=== PATIENT | male | born 1975 | race Caucasian/White ===

== ENCOUNTER 2018-10-19 07:13 | Inpatient (IN) | payer SELFPAY ==
[~2018-10-19] VITALS: Ht 167.6 cm; Wt 87.0 kg
[2018-10-19] MEDS ORDERED: ONDANSETRON 4 MG INJ ONE (07:43)
[2018-10-19] MEDS ORDERED: morphine 4 MG/ML VIAL ONE (07:44)
[2018-10-19] MEDS ORDERED: morphine 4 MG/ML VIAL IV STA ×2 (07:48→09:50)
[2018-10-19] MEDS ORDERED: ONDANSETRON 4 MG INJ IV STA ×2 (07:48→17:35)
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
[2018-10-19] MEDS ORDERED: SOD CHLORIDE 0.9% 100 ML ONE (08:07)
[2018-10-19] MEDS ORDERED: IOHEXOL 300MG/ML 150 ML BTL ONE (08:07)
[2018-10-19] MEDS ORDERED: ACET-141 PO (08:46)
[2018-10-19] MEDS ORDERED: IBUP-1542 PO (08:46)
[2018-10-19] MEDS ORDERED: [UNRECOGNIZED DRUG - CODE] PO (08:46)
[2018-10-19] MEDS ORDERED: SOD CHLORIDE 0.9% 1,000 ML IV ONE (10:00)
[2018-10-19] MEDS ORDERED: FENTAnyl 50 MCG/ML VIAL ONE (10:46)
[2018-10-19] MEDS ORDERED: FENTAnyl 50 MCG/ML VIAL IV ONE (11:00)
[2018-10-19] MEDS ORDERED: ACETAMINOPHEN 325 MG TAB PO PRN (12:00)
[2018-10-19] MEDS ORDERED: HYDROmorphONE 0.5 MG/0.5 ML SYG IV STA (13:39)
[2018-10-19] MEDS ORDERED: HYDROmorphONE 1 MG/ML SYG ONE (13:43)
[2018-10-19] MEDS: ONDANSETRON 4 MG INJ IV PRN (14:11)
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
[2018-10-19] MEDS ORDERED: ONDANSETRON 4 MG INJ IV PRN (15:00)
[2018-10-19] MEDS ORDERED: NACL 0.9% 3 ML SYG IV SCH (15:00)
[2018-10-19] MEDS: HYDROmorphONE 2 MG/ML SYG IV PRN ×3 (15:57→22:01)
[2018-10-19] MEDS ORDERED: HYDROmorphONE 1 MG/ML SYG IV STA (17:35)
[2018-10-19 18:06] VITALS: BP 148/98; PULSE 89; RESP 18
[2018-10-19] MEDS: PANTOPRAZOLE 40 MG INJ IV SCH (18:45)
[2018-10-19] MEDS: SOD CHLORIDE 0.9% 1,000 ML IV SCH (18:45)
[2018-10-19 19:54] VITALS: BP 143/80; PULSE 66; RESP 20
[2018-10-19 21:30] VITALS: Ht 167.6 cm; Wt 87.0 kg
[2018-10-20] MEDS: SOD CHLORIDE 0.9% 1,000 ML IV SCH ×5 (01:24→23:26)
[2018-10-20 02:18] VITALS: BP 148/88; PULSE 88; RESP 18
[2018-10-20] MEDS: PANTOPRAZOLE 40 MG INJ IV SCH ×2 (05:30→22:03)
[2018-10-20] MEDS: HYDROmorphONE 2 MG/ML SYG IV PRN ×4 (05:33→20:32)
[2018-10-20 07:08] VITALS: BP 148/93; PULSE 84; RESP 18
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
[2018-10-20] MEDS: ONDANSETRON 4 MG INJ IV PRN (11:28)
[2018-10-20 14:05] VITALS: BP 146/80; PULSE 80; RESP 18
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
[2018-10-20 19:05] VITALS: BP 155/101; PULSE 76; RESP 18
[2018-10-20] MEDS: GEMFIBROZIL 600 MG TAB PO SCH (20:32)
[2018-10-20] MEDS: FISH OIL 1,000 MG CAP PO SCH (20:32)
[2018-10-21 02:00] VITALS: BP 158/101; PULSE 74; RESP 18
[2018-10-21] MEDS: HYDROmorphONE 2 MG/ML SYG IV PRN ×4 (02:26→20:31)
[2018-10-21] MEDS: PANTOPRAZOLE 40 MG INJ IV SCH ×2 (06:13→17:25)
[2018-10-21] MEDS: SOD CHLORIDE 0.9% 1,000 ML IV SCH ×3 (06:14→20:31)
[2018-10-21 07:42] VITALS: BP 138/88; PULSE 78; RESP 18
[2018-10-21] MEDS: FISH OIL 1,000 MG CAP PO SCH ×2 (08:20→20:27)
[2018-10-21] MEDS: GEMFIBROZIL 600 MG TAB PO SCH ×2 (08:20→20:27)
[2018-10-21] MEDS: ACETAMINOPHEN 325 MG TAB PO PRN ×2 (08:25→17:25)
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
[2018-10-21] MEDS ORDERED: THIAMINE 200 MG INJ IM ONE ×2 (13:00)
[2018-10-21 14:13] VITALS: BP 145/84; PULSE 76; RESP 18
--- NOTE | 2018-10-21 17:44 | PN ---
Date/Time of Note Date/Time of Note DATE: 10/21/18 TIME: 17:37 Assessment/Plan VTE Prophylaxis Risk score (from Ns)>0 risk: 1 SCD applied (from Ns): Yes Pharmacological prophylaxis: NA/contraindicated Pharm contraindication: liver dx Lines/Catheters IV [facility] Type [facility]from [facility] Peripheral IV Assessment/Plan Assessment/Plan Assessment: Acute pancreatitis -likely alcohol related, improving Elevated lipase - improving Duodenitis on CT Fatty liver Transaminitis Hyperbilirubinemia Alcohol abuse Plan: Continue IV fluids Can advance to full liquid diet Monitor lipase, continues to improve Monitor LFTs and bilirubin, improving overall Patient seen in collaboration with Dr. Dowd Subjective: Patient is doing well. Denies nausea or vomiting, denies abdominal pain. He is tolerating clear liquids. Liver function tests are improving as is lipase. Could advanced diet tomorrow. PHYSICAL EXAMINATION: GENERAL: Well developed, well nourished, alert & oriented x 3, in no acute dist ress SKIN: No lesions, jaundice, no stigmata chronic liver disease, no evidence of bleeding diathesis LYMPHATIC: No palpable lymphadenopathy. HEAD: Normocephalic, atraumatic, no tenderness. EYES: Pupils equal reactive to light and accommodation, full extraocular movements, sclera clear, non-icteric, no discharge. EARS/NOSE AND THROAT: Ears normal, nose normal, oropharynx normal, oral membranes well hydrated without lesions. NECK: Supple, no masses, thyroid normal, JVP within normal limits, carotids normal without bruits. CHEST: Inspection within normal limits. CARDIOVASCULAR: Heart: Regular rate and rhythm, no murmurs, gallops or rubs. Peripheral pulses present within normal limits, no cyanosis, clubbing or edemas. No pulsatile abdominal mass RESPIRATORY: Lungs clear to auscultation and percussion, no wheezing, no rubs GASTROINTESTINAL AND LIVER: Abdomen: Soft, upper abdominal tenderness, non- distended, no hernias, no masses, no organomegaly, no ascites, no guarding, no rebound tenderness, normoactive bowel sounds. Rectal: Deferred. GENITOURINARY: Male genitalia within normal limits. EXTREMITIES: No cyanosis, clubbing or edema. Result Diagram: 10/21/187 10/21/187 Results 24hrs Laboratory Tests Test 10/21/18 04:27 White Blood Count 6.3 Red Blood Count 4.52 L Hemoglobin 13.3 L Hematocrit 39.8 L Mean Corpuscular Volume 88.1 Mean Corpuscular Hemoglobin 29.4 Mean Corpuscular Hemoglobin Concent 33.4 Red Cell Distribution Width 12.2 Platelet Count 180 Mean Platelet Volume 10.1 Immature Granulocytes % 0.600 H Neutrophils % 58.7 Lymphocytes % 26.9 Monocytes % 7.5 Eosinophils % 6.0 Basophils % 0.3 Nucleated Red Blood Cells % 0.0 Immature Granulocytes # 0.040 H Neutrophils # 3.7 Lymphocytes # 1.7 Monocytes # 0.5 Eosinophils # 0.4 Basophils # 0.0 Nucleated Red Blood Cells # 0.0 Sodium Level 138 Potassium Level 4.0 Chloride Level 106 Carbon Dioxide Level 21 Anion Gap 11 Blood Urea Nitrogen 6 L Creatinine 0.63 Est Glomerular Filtrat Rate mL/min > 60 Glucose Level 89 Calcium Level 8.8 Total Bilirubin 1.1 Direct Bilirubin 0.00 Indirect Bilirubin 1.1 Aspartate Amino Transf (AST/SGOT) 99 #H Alanine Aminotransferase (ALT/SGPT) 102 H Alkaline Phosphatase 192 H Total Protein 7.4 Albumin 3.9 Globulin 3.50 H Albumin/Globulin Ratio 1.11 Lipase 670 H CC: SHELBY DOWD MD ; Exam/Review of Systems Exam Vitals Vital Signs Date Temp Pulse Resp B/P (MAP) Pulse Ox O2 O2 Flow FiO2 Time Delivery Rate 10/21/18 97.5 76 18 145/84 90 14:13 (104) 10/19/18 Room Air 17:02 Intake and Output 10/20/18 10/20/18 10/21/18 1515:00 23:00 07:00 IntakeIntake Total 750 ml 300 ml 1700 ml BalanceBalance 750 ml 300 ml 1700 ml Results Results 24hrs Laboratory Tests Test 10/21/18 04:27 White Blood Count 6.3 Red Blood Count 4.52 L Hemoglobin 13.3 L Hematocrit 39.8 L Mean Corpuscular Volume 88.1 Mean Corpuscular Hemoglobin 29.4 Mean Corpuscular Hemoglobin Concent 33.4 Red Cell Distribution Width 12.2 Platelet Count 180 Mean Platelet Volume 10.1 Immature Granulocytes % 0.600 H Neutrophils % 58.7 Lymphocytes % 26.9 Monocytes % 7.5 Eosinophils % 6.0 Basophils % 0.3 Nucleated Red Blood Cells % 0.0 Immature Granulocytes # 0.040 H Neutrophils # 3.7 Lymphocytes # 1.7 Monocytes # 0.5 Eosinophils # 0.4 Basophils # 0.0 Nucleated Red Blood Cells # 0.0 Sodium Level 138 Potassium Level 4.0 Chloride Level 106 Carbon Dioxide Level 21 Anion Gap 11 Blood Urea Nitrogen 6 L Creatinine 0.63 Est Glomerular Filtrat Rate mL/min > 60 Glucose Level 89 Calcium Level 8.8 Total Bilirubin 1.1 Direct Bilirubin 0.00 Indirect Bilirubin 1.1 Aspartate Amino Transf (AST/SGOT) 99 #H Alanine Aminotransferase (ALT/SGPT) 102 H Alkaline Phosphatase 192 H Total Protein 7.4 Albumin 3.9 Globulin 3.50 H Albumin/Globulin Ratio 1.11 Lipase 670 H Medications Medication Current Medications Sodium Chloride 1,000 ml @ 150 mls/hr Q6H40M IV Last administered on 10/21/18 13:00; Admin Dose 150 MLS/HR; Start 10/19/18 at 14:52 IV Flush (NS 3 ml) 3 ml PER PROTOCOL IV ; Start 10/19/18 at 15:00 Ondansetron HCl (Zofran Inj) 4 mg Q6H PRN IV NAUSEA/VOMITING; Start 10/19/18 at 15:00 Acetaminophen (Tylenol Tab) 650 mg Q6H PRN PO .PAIN 1-3 OR TEMP Last administered on 10/21/18 17:25; Admin Dose 650 MG; Start 10/19/18 at 15:00 Hydromorphone HCl (Dilaudid) 2 mg Q4H PRN IV .SEVERE PAIN 7-10 Last administered on 10/21/18 11:13; Admin Dose 2 MG; Start 10/19/18 at 15:00 Pantoprazole (Protonix Iv) 40 mg BID@0600,1800 IV Last administered on 10/21/18 17:25; Admin Dose 40 MG; Start 10/19/18 at 18:00 Gemfibrozil (Lopid) 600 mg BID PO Last administered on 10/21/18 08:20; Admin Dose 600 MG; Start 10/20/18 at 21:00 Fish Oil (Fish Oil) 2,000 mg BID PO Last administered on 10/21/18 08:20; Admin Dose 2,000 MG; Start 10/20/18 at 21:00 Thiamine HCl (Vitamin B1) 100 mg DAILY PO ; Start 10/22/18 at 09:00 ZAC MARIE NP October 21, 2018 17:44
[2018-10-21 20:04] VITALS: BP 142/92; PULSE 77; RESP 20
[2018-10-22 02:23] VITALS: BP 140/88; PULSE 74; RESP 17
[2018-10-22] MEDS: SOD CHLORIDE 0.9% 1,000 ML IV SCH ×3 (03:06→23:22)
[2018-10-22] MEDS: PANTOPRAZOLE 40 MG INJ IV SCH ×2 (05:56→17:59)
[2018-10-22 07:06] VITALS: BP 153/96; PULSE 73; RESP 16
[2018-10-22] MEDS: FISH OIL 1,000 MG CAP PO SCH ×2 (08:41→23:22)
[2018-10-22] MEDS: GEMFIBROZIL 600 MG TAB PO SCH ×2 (08:42→23:22)
[2018-10-22] MEDS: THIAMINE 100 MG TAB PO SCH (08:42)
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
[2018-10-22 14:44] VITALS: BP 148/85; PULSE 69; RESP 16
--- NOTE | 2018-10-22 16:20 | PN ---
Date/Time of Note Date/Time of Note DATE: 10/22/18 TIME: 16:13 Assessment/Plan VTE Prophylaxis Risk score (from [facility])>0 risk: 2 SCD applied (from [facility]): Yes Pharmacological prophylaxis: NA/contraindicated Pharm contraindication: liver dx Lines/Catheters IV Catheter Type (from [facility]): Peripheral IV Assessment/Plan Assessment/Plan Assessment: Acute pancreatitis -likely alcohol related, improving Elevated lipase - increased today Duodenitis on CT Fatty liver Transaminitis - improving Hyperbilirubinemia Alcohol abuse Plan: Continue IV fluids NPO for bowel rest given increase in lipase Monitor lipase, slightly increased today Monitor LFTs and bilirubin, improving overall Continue supportive treatment for alcohol withdrawal Patient seen in collaboration with Dr. Dowd Subjective: Patient is doing well. Denies nausea or vomiting, denies abdominal pain. He is tolerating full liquid diet though lipase is higher today. Liver function tests are improving. Would encourage more bowel rest until pancreatitis resolves. PHYSICAL EXAMINATION: GENERAL: Well developed, well nourished, alert & oriented x 3, in no acute distress SKIN: No lesions, jaundice, no stigmata chronic liver disease, no evidence of bleeding diathesis LYMPHATIC: No palpable lymphadenopathy. HEAD: Normocephalic, atraumatic, no tenderness. EYES: Pupils equal reactive to light and accommodation, full extraocular movements, sclera clear, non-icteric, no discharge. EARS/NOSE AND THROAT: Ears normal, nose normal, oropharynx normal, oral membranes well hydrated without lesions. NECK: Supple, no masses, thyroid normal, JVP within normal limits, carotids normal without bruits. CHEST: Inspection within normal limits. CARDIOVASCULAR: Heart: Regular rate and rhythm, no murmurs, gallops or rubs. Peripheral pulses present within normal limits, no cyanosis, clubbing or edemas. No pulsatile abdominal mass RESPIRATORY: Lungs clear to auscultation and percussion, no wheezing, no rubs GASTROINTESTINAL AND LIVER: Abdomen: Soft, upper abdominal tenderness, non- distended, no hernias, no masses, no organomegaly, no ascites, no guarding, no rebound tenderness, normoactive bowel sounds. Rectal: Deferred. GENITOURINARY: Male genitalia within normal limits. EXTREMITIES: No cyanosis, clubbing or edema. Result Diagram: 10/21/18 0427 10/22/18 0444 Results 24hrs Laboratory Tests Test 10/22/18 04:44 Sodium Level 139 Potassium Level 4.0 Chloride Level 109 Carbon Dioxide Level 22 Anion Gap 8 Blood Urea Nitrogen 3 L Creatinine 0.59 L Est Glomerular Filtrat Rate mL/min > 60 Glucose Level 95 Calcium Level 9.5 Total Bilirubin 0.7 Direct Bilirubin 0.00 Indirect Bilirubin 0.7 Aspartate Amino Transf (AST/SGOT) 72 H Alanine Aminotransferase (ALT/SGPT) 88 H Alkaline Phosphatase 154 H Total Protein 6.5 Albumin 3.6 Globulin 2.90 Albumin/Globulin Ratio 1.24 Triglycerides Level 234 H Cholesterol Level 195 LDL Cholesterol, Calculated 110 HDL Cholesterol 38 Cholesterol/HDL Ratio 5.1 Lipase 1148 H CC: SHELBY DOWD MD ; Exam/Review of Systems Exam Vitals Vital Signs Date Temp Pulse Resp B/P (MAP) Pulse Ox O2 O2 Flow FiO2 Time Delivery Rate 10/22/18 98.5 69 16 148/85 96 Room Air 14:44 (106) Intake and Output 10/21/18 10/21/18 10/22/18 1515:00 23:00 07:00 IntakeIntake Total 1000 ml 1360 ml 1540 ml BalanceBalance 1000 ml 1360 ml 1540 ml Results Results 24hrs Laboratory Tests Test 10/22/18 04:44 Sodium Level 139 Potassium Level 4.0 Chloride Level 109 Carbon Dioxide Level 22 Anion Gap 8 Blood Urea Nitrogen 3 L Creatinine 0.59 L Est Glomerular Filtrat Rate mL/min > 60 Glucose Level 95 Calcium Level 9.5 Total Bilirubin 0.7 Direct Bilirubin 0.00 Indirect Bilirubin 0.7 Aspartate Amino Transf (AST/SGOT) 72 H Alanine Aminotransferase (ALT/SGPT) 88 H Alkaline Phosphatase 154 H Total Protein 6.5 Albumin 3.6 Globulin 2.90 Albumin/Globulin Ratio 1.24 Triglycerides Level 234 H Cholesterol Level 195 LDL Cholesterol, Calculated 110 HDL Cholesterol 38 Cholesterol/HDL Ratio 5.1 Lipase 1148 H Medications Medication Current Medications Sodium Chloride 1,000 ml @ 75 mls/hr [id number] IV Last administered on 10/22/18at 09:55; Admin Dose 150 MLS/HR; Start 10/19/18 at 14:52 IV Flush (NS 3 ml) 3 ml PER PROTOCOL IV ; Start 10/19/18 at 15:00 Ondansetron HCl (Zofran Inj) 4 mg Q6H PRN IV NAUSEA/VOMITING; Start 10/19/18 at 15:00 Acetaminophen (Tylenol Tab) 650 mg Q6H PRN PO .PAIN 1-3 OR TEMP Last administered on 10/21/18 17:25; Admin Dose 650 MG; Start 10/19/18 at 15:00 Hydromorphone HCl (Dilaudid) 2 mg Q4H PRN IV .SEVERE PAIN 7-10 Last adm inistered on 10/21/18 20:31; Admin Dose 2 MG; Start 10/19/18 at 15:00 Pantoprazole (Protonix Iv) 40 mg BID@0600,1800 IV Last administered on 10/22/18 05:56; Admin Dose 40 MG; Start 10/19/18 at 18:00 Gemfibrozil (Lopid) 600 mg BID PO Last administered on 10/22/18 08:42; Admin Dose 600 MG; Start 10/20/18 at 21:00 Fish Oil (Fish Oil) 2,000 mg BID PO Last administered on 10/22/18 08:41; Admin Dose 2,000 MG; Start 10/20/18 at 21:00 Thiamine HCl (Vitamin B1) 100 mg DAILY PO Last administered on 10/22/18 08:42; Admin Dose 100 MG; Start 10/22/18 at 09:00 ZAC MARIE NP October 22, 2018 16:20
[2018-10-22] MEDS: ACETAMINOPHEN 325 MG TAB PO PRN (18:01)
[2018-10-22 20:00] VITALS: BP 150/93; PULSE 73; RESP 18
[2018-10-23 02:00] VITALS: BP 159/91; PULSE 65; RESP 18
[2018-10-23] MEDS ORDERED: ZOLPIDEM 5 MG TAB PO ONE (02:30)
[2018-10-23 07:08] VITALS: BP 131/70; PULSE 70; RESP 18
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
[2018-10-23] MEDS ORDERED: SOD CHLORIDE 0.9% 500 ML IV ONE (10:30)
[2018-10-23] MEDS: THIAMINE 100 MG TAB PO SCH (11:02)
[2018-10-23] MEDS: FISH OIL 1,000 MG CAP PO SCH ×2 (11:02→21:53)
[2018-10-23] MEDS: PANTOPRAZOLE 40 MG INJ IV SCH ×2 (11:02→17:53)
[2018-10-23] MEDS: SOD CHLORIDE 0.9% 1,000 ML IV SCH ×2 (12:12→23:29)
[2018-10-23 13:31] VITALS: BP 147/95; PULSE 63; RESP 18
--- NOTE | 2018-10-23 15:49 | PN ---
Date/Time of Note Date/Time of Note DATE: 10/23/18 TIME: 15:48 Assessment/Plan VTE Prophylaxis Risk score (from Nsg)>0 risk: 1 SCD applied (from Nsg): Yes Pharmacological prophylaxis: other (scds) Lines/Catheters IV Catheter Type (from Nrs): Peripheral IV Assessment/Plan Hospital Course Assessment/Plan Assessment: Acute pancreatitis Elevated lipase - Duodenitis on CT- continue PPI -may be r/t pancreatitis Fatty liver Transaminitis - trending down Hyperbilirubinemia- resolved Alcohol abuse Plan: PPI NPO for bowel rest given increase in lipase Monitor lipase, slightly increased today Monitor LFTs and bilirubin, improving overall Continue supportive treatment for alcohol withdrawal Patient seen in collaboration with Dr. Dowd Subjective: No c/o abd pain, nausea or vomiting. Lipase elevated Will reassess in am- if lipase down without pain will advance diet PHYSICAL EXAMINATION: GENERAL: Well developed, well nourished, alert & oriented x 3, in no acute distress SKIN: No lesions, jaundice, no stigmata chronic liver disease, no evidence of bleeding diathesis LYMPHATIC: No palpable lymphadenopathy. HEAD: Normocephalic, atraumatic, no tenderness. EYES: Pupils equal reactive to light and accommodation, full extraocular movements, sclera clear, non-icteric, no discharge. EARS/NOSE AND THROAT: Ears normal, nose normal, oropharynx normal, oral membranes well hydrated without lesions. NECK: Supple, no masses, thyroid normal, JVP within normal limits, carotids normal without bruits. CHEST: Inspection within normal limits. CARDIOVASCULAR: Heart: Regular rate and rhythm, no murmurs, gallops or rubs. Peripheral pulses present within normal limits, no cyanosis, clubbing or edemas. No pulsatile abdominal mass RESPIRATORY: Lungs clear to auscultation and percussion, no wheezing, no rubs GASTROINTESTINAL AND LIVER: Abdomen: Soft, upper abdominal tenderness, non- distended, no hernias, no masses, no organomegaly, no ascites, no guarding, no rebound tenderness, normoactive bowel sounds. Rectal: Deferred. GENITOURINARY: Male genitalia within normal limits. EXTREMITIES: No cyanosis, clubbing or edema. Result Diagram: 10/21/18 0427 10/23/18 1270 Results 24hrs Laboratory Tests Test 10/23/18 04:40 Sodium Level 140 Potassium Level 3.9 Chloride Level 108 Carbon Dioxide Level 23 Anion Gap 9 Blood Urea Nitrogen 5 L Creatinine 0.69 Est Glomerular Filtrat Rate mL/min > 60 Glucose Level 120 Calcium Level 10.0 Total Bilirubin 0.7 Direct Bilirubin 0.00 Indirect Bilirubin 0.7 Aspartate Amino Transf (AST/SGOT) 74 H Alanine Aminotransferase (ALT/SGPT) 90 H Alkaline Phosphatase 144 H Total Protein 7.3 Albumin 4.1 Globulin 3.20 Albumin/Globulin Ratio 1.28 Lipase 1092 H Exam/Review of Systems Exam Vitals Vital Signs Date Temp Pulse Resp B/P (MAP) Pulse Ox O2 O2 Flow FiO2 Time Delivery Rate 10/23/18 98.4 63 18 147/95 99 13:31 (112) 10/22/18 Room Air 14:44 Intake and Output 10/22/18 10/22/18 10/23/18 1515:00 23:00 07:00 IntakeIntake Total 1320 ml 1210 ml 1020 ml BalanceBalance 1320 ml 1210 ml 1020 ml Results Results 24hrs Laboratory Tests Test 10/23/18 04:40 Sodium Level 140 Potassium Level 3.9 Chloride Level 108 Carbon Dioxide Level 23 Anion Gap 9 Blood Urea Nitrogen 5 L Creatinine 0.69 Est Glomerular Filtrat Rate mL/min > 60 Glucose Level 120 Calcium Level 10.0 Total Bilirubin 0.7 Direct Bilirubin 0.00 Indirect Bilirubin 0.7 Aspartate Amino Transf (AST/SGOT) 74 H Alanine Aminotransferase (ALT/SGPT) 90 H Alkaline Phosphatase 144 H Total Protein 7.3 Albumin 4.1 Globulin 3.20 Albumin/Globulin Ratio 1.28 Lipase 1092 H Medications Medication Current Medications Sodium Chloride 1,000 ml @ 75 mls/hr [id number] IV Last administered on 10/23/18at 12:12; Admin Dose 75 MLS/HR; Start 10/19/18 at 14:52 IV Flush (NS 3 ml) 3 ml PER PROTOCOL IV ; Start 10/19/18 at 15:00 Ondansetron HCl (Zofran Inj) 4 mg Q6H PRN IV NAUSEA/VOMITING; Start 10/19/18 at 15:00 Acetaminophen (Tylenol Tab) 650 mg Q6H PRN PO .PAIN 1-3 OR TEMP Last administered on 10/22/18at 18:01; Admin Dose 650 MG; Start 10/19/18 at 15:00 Hydromorphone HCl (Dilaudid) 2 mg Q4H PRN IV .SEVERE PAIN 7-10 Last administered on 10/21/18 20:31; Admin Dose 2 MG; Start 10/19/18 at 15:00 Pantoprazole (Protonix Iv) 40 mg BID@0600,1800 IV Last administered on 10/23/18 11:02; Admin Dose 40 MG; Start 10/19/18 at 18:00 Fish Oil (Fish Oil) 2,000 mg BID PO Last administered on 10/23/18 11:02; Admin Dose 2,000 MG; Start 10/20/18 at 21:00 Thiamine HCl (Vitamin B1) 100 mg DAILY PO Last administered on 10/23/18 11:02; Admin Dose 100 MG; Start 10/22/18 at 09:00 JSOE ROSE October 23, 2018 15:49
[2018-10-23 20:00] VITALS: BP 157/96; PULSE 62; RESP 20
[2018-10-23] MEDS ORDERED: hydrALAzine 20 MG INJ IV PRN (21:30)
[2018-10-23 21:53] VITALS: BP 178/104
[2018-10-23] MEDS: ACETAMINOPHEN 325 MG TAB PO PRN (23:28)
[2018-10-24] MEDS ORDERED: traZODone 50 MG TAB PO ONE (01:30)
[2018-10-24 02:10] VITALS: BP 135/83; PULSE 73; RESP 20
[2018-10-24] MEDS: PANTOPRAZOLE 40 MG INJ IV SCH ×2 (05:21→19:33)
[2018-10-24 07:38] VITALS: BP 128/75; PULSE 67; RESP 17
[2018-10-24] MEDS: THIAMINE 100 MG TAB PO SCH (10:02)
[2018-10-24] MEDS: FISH OIL 1,000 MG CAP PO SCH ×2 (10:03→20:26)
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
--- NOTE | 2018-10-24 12:57 | PN ---
Date/Time of Note Date/Time of Note DATE: 10/24/18 TIME: 12:51 Assessment/Plan VTE Prophylaxis Risk score (from Nsg)>0 risk: 2 SCD applied (from Nsg): Yes Pharmacological prophylaxis: other (scds) Lines/Catheters IV Catheter Type (from Nrs): Peripheral IV Assessment/Plan Hospital Course Assessment/Plan Assessment: Acute pancreatitis Elevated lipase - Duodenitis on CT- continue PPI -may be r/t pancreatitis Fatty liver Transaminitis - trending down Hyperbilirubinemia- resolved Alcohol abuse Plan: PPI tx Despite elevated lipase- patient denies any abdominal pain and has not received pain medication x2 days- we will start a trail of clear liquid with plan to advance as tolerated Continue supportive treatment for alcohol withdrawal Pt will need to f/u with GI after discharge to reassess possible duodenitis Patient seen in collaboration with Dr. Dowd Subjective: No c/o abd pain, nausea or vomiting. Patient states he wants to go home. No over night events, LFTs trending down PHYSICAL EXAMINATION: GENERAL: Well developed, well nourished, alert & oriented x 3, in no acute distress SKIN: No lesions HEAD: Normocephalic, atraumatic, no tenderness. EYES: Pupils equal reactive to light and accommodation, full extraocular movements, sclera clear, non-icteric, no discharge. EARS/NOSE AND THROAT: Ears normal, nose normal. NECK: Supple, no masses, CHEST: Inspection within normal limits. CARDIOVASCULAR: Heart: Regular rate and rhythm, RESPIRATORY: Lungs clear to auscultation and percussion, no wheezing, no rubs GASTROINTESTINAL AND LIVER: Abdomen: Soft, no c/o abd pain even with deep pal pation, non-distended, no hernias, no masses, no organomegaly, no ascites, no guarding, no rebound tenderness, normoactive bowel sounds. Rectal: Deferred. GENITOURINARY: Male genitalia within normal limits. EXTREMITIES: No cyanosis, clubbing or edema. Result Diagram: 10/21/18 0427 10/24/18 0425 Results 24hrs Laboratory Tests Test 10/24/18 04:25 Sodium Level 143 Potassium Level 3.4 L Chloride Level 111 H Carbon Dioxide Level 21 Anion Gap 11 Blood Urea Nitrogen 7 Creatinine 0.66 Est Glomerular Filtrat Rate mL/min > 60 Glucose Level 98 Calcium Level 9.7 Total Bilirubin 0.8 Direct Bilirubin 0.00 Indirect Bilirubin 0.8 Aspartate Amino Transf (AST/SGOT) 64 H Alanine Aminotransferase (ALT/SGPT) 76 H Alkaline Phosphatase 141 H Total Protein 7.5 Albumin 4.1 Globulin 3.40 H Albumin/Globulin Ratio 1.20 Amylase Level 152 H Lipase 1055 H Exam/Review of Systems Exam Vitals Vital Signs Date Temp Pulse Resp B/P (MAP) Pulse Ox O2 O2 Flow FiO2 Time Delivery Rate 10/24/18 98.3 67 17 128/75 96 07:38 (92) 10/22/18 Room Air 14:44 Intake and Output 10/23/18 10/23/18 10/24/18 1515:00 23:00 07:00 IntakeIntake Total 1400 ml 425 ml 1290 ml BalanceBalance 1400 ml 425 ml 1290 ml Results Results 24hrs Laboratory Tests Test 10/24/18 04:25 Sodium Level 143 Potassium Level 3.4 L Chloride Level 111 H Carbon Dioxide Level 21 Anion Gap 11 Blood Urea Nitrogen 7 Creatinine 0.66 Est Glomerular Filtrat Rate mL/min > 60 Glucose Level 98 Calcium Level 9.7 Total Bilirubin 0.8 Direct Bilirubin 0.00 Indirect Bilirubin 0.8 Aspartate Amino Transf (AST/SGOT) 64 H Alanine Aminotransferase (ALT/SGPT) 76 H Alkaline Phosphatase 141 H Total Protein 7.5 Albumin 4.1 Globulin 3.40 H Albumin/Globulin Ratio 1.20 Amylase Level 152 H Lipase 1055 H Medications Medication Current Medications Sodium Chloride 1,000 ml @ 75 mls/hr [id number] IV Last administered on 10/23/18 23:29; Admin Dose 75 MLS/HR; Start 10/19/18 at 14:52 IV Flush (NS 3 ml) 3 ml PER PROTOCOL IV ; Start 10/19/18 at 15:00 Ondansetron HCl (Zofran Inj) 4 mg Q6H PRN IV NAUSEA/VOMITING; Start 10/19/18 at 15:00 Acetaminophen (Tylenol Tab) 650 mg Q6H PRN PO .PAIN 1-3 OR TEMP Last administered on 10/23/18at 23:28; Admin Dose 650 MG; Start 10/19/18 at 15:00 Hydromorphone HCl (Dilaudid) 2 mg Q4H PRN IV .SEVERE PAIN 7-10 Last administered on 10/21/18 20:31; Admin Dose 2 MG; Start 10/19/18 at 15:00 Pantoprazole (Protonix Iv) 40 mg BID@0600,1800 IV Last administered on 10/24/18 05:21; Admin Dose 40 MG; Start 10/19/18 at 18:00 Fish Oil (Fish Oil) 2,000 mg BID PO Last administered on 10/24/18 10:03; Admin Dose 2,000 MG; Start 10/20/18 at 21:00 Thiamine HCl (Vitamin B1) 100 mg DAILY PO Last administered on 10/24/18 10:02; Admin Dose 100 MG; Start 10/22/18 at 09:00 Hydralazine HCl (Apresoline) 10 mg Q4H PRN IV ELEVATED SYSTOLIC BP Last administered on 10/23/18 21:53; Admin Dose 10 MG; Start 10/23/18 at 21:30 JOSE ROSE October 24, 2018 12:57
[2018-10-24 13:35] VITALS: BP 147/89; PULSE 70; RESP 18
[2018-10-24] MEDS: SOD CHLORIDE 0.9% 1,000 ML IV SCH (13:56)
[2018-10-24 20:44] VITALS: BP 137/86; PULSE 69; RESP 19
[2018-10-24] MEDS: ACETAMINOPHEN 325 MG TAB PO PRN (22:13)
[2018-10-25 01:36] VITALS: BP 116/60; PULSE 68; RESP 18
[2018-10-25 08:30] VITALS: BP 127/63; PULSE 67; RESP 18
[2018-10-25] MEDS ORDERED: FAMOTIDINE 20 MG INJ IV SCH (09:00)
[2018-10-25] MEDS: FISH OIL 1,000 MG CAP PO SCH ×2 (09:14→20:11)
[2018-10-25] MEDS: THIAMINE 100 MG TAB PO SCH (09:15)
[2018-10-25] MEDS ORDERED: THIAMINE 100 MG TAB PO SCH (09:30)
[2018-10-25] MEDS: SOD CHLORIDE 0.9% 1,000 ML IV SCH (09:31)
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
[2018-10-25] MEDS ORDERED: IOHEXOL 300MG/ML 150 ML BTL ONE (11:40)
[2018-10-25] MEDS ORDERED: SOD CHLORIDE 0.9% 100 ML ONE (11:40)
[2018-10-25] MEDS: CREON (12k-38k-60k) 1 CAP PO SCH ×2 (12:23→17:54)
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
--- NOTE | 2018-10-25 17:03 | QN ---
Documentation Comment Reviewed results of Ct with Dr. Dowd. Given results of CT scan as well as patient denying symptoms of abdominal pain we will plan to advance patients diet today Reassess in am. JOSE ROSE October 25, 2018 17:03
[2018-10-25] MEDS: FAMOTIDINE 20 MG TAB PO SCH (20:12)
[2018-10-25 20:39] VITALS: BP 160/98; PULSE 64; RESP 18
[2018-10-26 02:17] VITALS: BP 131/65; PULSE 69; RESP 18
[2018-10-26 07:15] VITALS: BP 119/73; PULSE 65; RESP 18
[2018-10-26] MEDS: CREON (12k-38k-60k) 1 CAP PO SCH (08:48)
[2018-10-26] MEDS: FAMOTIDINE 20 MG TAB PO SCH (08:48)
[2018-10-26] MEDS: FISH OIL 1,000 MG CAP PO SCH (08:48)
[2018-10-26] MEDS: THIAMINE 100 MG TAB PO SCH (08:48)
--- NOTE | 2018-10-26 09:59 | PDOCDIS ---
Discharge Instructions CONDITION [id number] Patient Condition: [id number] Stable HOME CARE INSTRUCTIONS: [id number] Diet Instructions: [id number] Regular ACTIVITY: [id number] Activity Restrictions: [id number] No Restrictions [id number] Bathing Restrictions: Imcye3s Shower FOLLOW UP/APPOINTMENTS Follow-up Plan Follow-up with primary care physician in 1 week Cessation of alcohol CATHERINE ESTRADA NP October 26, 2018 09:59
[2018-10-26] MEDS ORDERED: LIPA1CAP4 PO (10:00)
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
[2018-10-26] MEDS ORDERED: PANT40TA3 PO (10:09)
[2018-10-26] MEDS ORDERED: OMEG100024 PO (10:09)
== END 2018-10-26 11:27 | disposition home or self-care (01) | DRG 439 ==
LOC: E/R 07:13 → MS1 11:41
PROVIDERS: ADMIT Internal Medicine; ATTEND Internal Medicine
DX: K85.80 Other acute pancreatitis without necrosis or infection (principal); S22.31XA Fracture of one rib, right side, initial encounter for closed fracture; V19.9XXA Pedal cyclist (driver) (passenger) injured in unspecified traffic accident, initial encounter; R10.84 Generalized abdominal pain; E80.6 Other disorders of bilirubin metabolism; K29.80 Duodenitis without bleeding; K76.0 Fatty (change of) liver, not elsewhere classified; F10.10 Alcohol abuse, uncomplicated; R11.2 Nausea with vomiting, unspecified; R73.02 Impaired glucose tolerance (oral)
CPT/HCPCS: 71260; 74160; 74177; 74181; 76705; 80048; 80053; 80061; 80076; 80307; 82150; 82787; 83036; 83690; 83735; 84100; 85025; 85610; 85730; 86704; 86709; 86803; 87340; 96361; 96374; 96375; 96376; C9113; J0360; J1170; J2270; J2405; J3010; J3411; J7030; J7040; Q9967